=== PATIENT | female | born 2000 | race Two or more races ===

== ENCOUNTER → 2020-08-03 | Outpatient (CLI) | payer OTHER | END | disposition home or self-care (01) | LOC: PRENATAL 10:55 | PROVIDERS: ATTEND Obstetrics & Gynecology Maternal & Fetal Medicine | DX: O34.31 Maternal care for cervical incompetence, first trimester (principal); O36.80X1 Pregnancy with inconclusive fetal viability, fetus 1; O26.851 Spotting complicating pregnancy, first trimester; Z36.89 Encounter for other specified antenatal screening; Z3A.12 12 weeks gestation of pregnancy ==

== ENCOUNTER 2020-08-22 08:26 | Day surgery (SDC) | payer OTHER ==
[~2020-08-22 08:26] MED LIST: PRENATA PO
== END 2020-08-22 18:40 | disposition home or self-care (01) ==
LOC: CIR.AMB 08:26 → SURH 10:11 → CIR.AMB 10:44 → EDSTATUS 10:44 → CIR.AMB 11:14
PROVIDERS: ATTEND Obstetrics & Gynecology Maternal & Fetal Medicine
DX: O34.32 Maternal care for cervical incompetence, second trimester (principal); Z3A.14 14 weeks gestation of pregnancy

== ENCOUNTER → 2020-09-22 | Outpatient (CLI) | payer OTHER | END | disposition home or self-care (01) | LOC: PRENATAL 11:00 | PROVIDERS: ATTEND Obstetrics & Gynecology Maternal & Fetal Medicine | DX: O35.0XX1 Maternal care for (suspected) central nervous system malformation in fetus, fetus 1 (principal); O35.3XX1 Maternal care for (suspected) damage to fetus from viral disease in mother, fetus 1; O98.512 Other viral diseases complicating pregnancy, second trimester; O99.212 Obesity complicating pregnancy, second trimester; Z36.89 Encounter for other specified antenatal screening; Z3A.19 19 weeks gestation of pregnancy ==

== ENCOUNTER 2020-10-11 12:38 | Outpatient (CLI) | payer OTHER | END 2020-10-12 01:06 | disposition home or self-care (01) | LOC: OBS/DEL 12:38 | PROVIDERS: ATTEND Specialist | DX: O26.842 Uterine size-date discrepancy, second trimester (principal); O26.852 Spotting complicating pregnancy, second trimester; O34.32 Maternal care for cervical incompetence, second trimester; O23.42 Unspecified infection of urinary tract in pregnancy, second trimester; Z3A.22 22 weeks gestation of pregnancy ==

== ENCOUNTER → 2020-10-19 | Outpatient (CLI) | payer OTHER | END | disposition home or self-care (01) | LOC: PRENATAL 16:19 | PROVIDERS: ATTEND Obstetrics & Gynecology Maternal & Fetal Medicine | DX: O26.842 Uterine size-date discrepancy, second trimester (principal); O34.32 Maternal care for cervical incompetence, second trimester; O99.212 Obesity complicating pregnancy, second trimester; Z36.89 Encounter for other specified antenatal screening; Z3A.23 23 weeks gestation of pregnancy ==

== ENCOUNTER 2020-11-07 04:28 | Outpatient (CLI) | payer OTHER ==
[~2020-11-07 04:28] MED LIST changes: -PRENATA PO; +PRENATAL PO
[2020-11-07] MEDS ORDERED: MACROBID 100 M100 MG PO (05:39)
[2020-11-07] MEDS ORDERED: PROGESTERONA VAG (05:40)
[2020-11-07] MEDS ORDERED: DUI500 PO (16:37)
== END 2020-11-07 18:20 | disposition home or self-care (01) ==
LOC: OBS/DEL 04:28
PROVIDERS: ATTEND Specialist
DX: O23.42 Unspecified infection of urinary tract in pregnancy, second trimester (principal); Z3A.26 26 weeks gestation of pregnancy; Z20.822 Contact with and (suspected) exposure to COVID-19

== ENCOUNTER → 2020-11-22 | Outpatient (CLI) | payer OTHER ==
[~2020-11-22] MED LIST changes: +DUI500 PO; +FUSION PLUS CA1 EACH; +IRON325 MG PO; +LORATADINE10 MG; +MACROBID 100 M100 MG PO; +PRENATAL CAPLE1 EAC1 PO; +PROGESTERONA VAG; +PROGESTERONE100 M1
== END | disposition home or self-care (01) ==
LOC: PRENATAL 16:00
PROVIDERS: ATTEND Obstetrics & Gynecology Maternal & Fetal Medicine
DX: O26.843 Uterine size-date discrepancy, third trimester (principal); O34.33 Maternal care for cervical incompetence, third trimester; O99.213 Obesity complicating pregnancy, third trimester; Z36.89 Encounter for other specified antenatal screening; Z3A.28 28 weeks gestation of pregnancy

== ENCOUNTER 2021-01-06 13:07 | Inpatient (IN) | payer OTHER ==
[~2021-01-06] VITALS: Ht 160 cm; Wt 117.9 kg
[~2021-01-06 13:07] MED LIST changes: -FUSION PLUS CA1 EACH; -IRON325 MG PO; -LORATADINE10 MG; -PRENATAL CAPLE1 EAC1 PO; -PROGESTERONE100 M1
[2021-01-07] MEDS ORDERED: DUI500 PO (15:22)
== END 2021-01-07 16:45 | disposition home or self-care (01) | DRG 819 ==
LOC: OBS/DEL 13:07 → OB/GYN 17:02 → LDR 17:02 → OB/GYN 18:18
PROVIDERS: ADMIT Specialist; ATTEND Specialist
PROC: 0UCC7ZZ Extirpation of Matter from Cervix, Via Natural or Artificial Opening (ICD-10-PCS; principal; 2021-01-06)
PROC: BY4FZZZ Ultrasonography of Third Trimester, Single Fetus (ICD-10-PCS; 2021-01-06)
DX: O34.33 Maternal care for cervical incompetence, third trimester (principal); O46.8X3 Other antepartum hemorrhage, third trimester; Z3A.34 34 weeks gestation of pregnancy

== ENCOUNTER 2021-01-14 00:20 | Outpatient (CLI) | payer OTHER | END 2021-01-14 07:00 | disposition home or self-care (01) | LOC: NST 00:20 | PROVIDERS: ATTEND Specialist | DX: Z34.83 Encounter for supervision of other normal pregnancy, third trimester (principal) ==

== ENCOUNTER 2021-01-18 14:52 | Inpatient (IN) | payer OTHER ==
[~2021-01-18] VITALS: Ht 160 cm; Wt 117.5 kg
[2021-01-18] MEDS ORDERED: IRON325 MG PO (15:31)
[2021-01-18] MEDS ORDERED: PRENATAL CAPLE1 EAC1 PO (15:31)
[2021-01-19] MEDS ORDERED: FUSION PLUS CA1 EACH (15:16)
[2021-01-19] MEDS ORDERED: LORATADINE10 MG (15:16)
[2021-01-19] MEDS ORDERED: PROGESTERONE100 M1 (15:16)
== END 2021-01-20 18:30 | disposition home or self-care (01) | DRG 807 ==
LOC: OB/GYN 14:52 → LDR 14:52 → OB/GYN 19:23
PROVIDERS: ADMIT Specialist; ATTEND Specialist
PROC: 10E0XZZ Delivery of Products of Conception, External Approach (ICD-10-PCS; principal; 2021-01-18)
PROC: 10907ZC Drainage of Amniotic Fluid, Therapeutic from Products of Conception, Via Natural or Artificial Opening (ICD-10-PCS; 2021-01-18)
PROC: 4A1HXFZ Monitoring of Products of Conception, Cardiac Rhythm, External Approach (ICD-10-PCS; 2021-01-18)
DX: O60.14X0 Preterm labor third trimester with preterm delivery third trimester, not applicable or unspecified (principal); Z37.0 Single live birth; Z3A.36 36 weeks gestation of pregnancy

== ENCOUNTER 2021-07-25 21:40 | Emergency (ER) | payer OTHER ==
[~2021-07-25] VITALS: Ht 160 cm; Wt 107.5 kg
[~2021-07-25 21:40] MED LIST changes: +FUSION PLUS CA1 EACH; +IRON325 MG PO; +LORATADINE10 MG; +PRENATAL CAPLE1 EAC1 PO; +PROGESTERONE100 M1
== END 2021-07-26 03:33 ==
LOC: ER 21:40
DX: O46.91 Antepartum hemorrhage, unspecified, first trimester (principal); Z3A.01 Less than 8 weeks gestation of pregnancy

== ENCOUNTER 2021-09-05 09:57 | Outpatient (CLI) | payer OTHER | END 2021-09-05 11:25 | disposition home or self-care (01) | LOC: PRENATAL 09:57 | PROVIDERS: ATTEND Obstetrics & Gynecology Maternal & Fetal Medicine | DX: O36.80X0 Pregnancy with inconclusive fetal viability, not applicable or unspecified (principal); Z3A.12 12 weeks gestation of pregnancy; O34.30 Maternal care for cervical incompetence, unspecified trimester; O99.210 Obesity complicating pregnancy, unspecified trimester ==

== ENCOUNTER 2021-10-02 08:21 | Inpatient (IN) | payer OTHER ==
[~2021-10-02] VITALS: Ht 160 cm; Wt 110.2 kg
[2021-10-02] MEDS ORDERED: IRON18 MG PO (09:57)
== END 2021-10-03 00:25 | disposition home or self-care (01) | DRG 819 ==
LOC: LDR 08:21
PROVIDERS: ADMIT Obstetrics & Gynecology Maternal & Fetal Medicine; ATTEND Obstetrics & Gynecology Maternal & Fetal Medicine
PROC: 4A1HXCZ Monitoring of Products of Conception, Cardiac Rate, External Approach (ICD-10-PCS; 2021-10-02)
PROC: 0UVC7ZZ Restriction of Cervix, Via Natural or Artificial Opening (ICD-10-PCS; principal; 2021-10-02 18:00)
DX: O34.32 Maternal care for cervical incompetence, second trimester (principal); Z3A.15 15 weeks gestation of pregnancy; Z20.822 Contact with and (suspected) exposure to COVID-19

== ENCOUNTER 2021-10-30 10:57 | Outpatient (CLI) | payer OTHER ==
[~2021-10-30 10:57] MED LIST changes: +IRON18 MG PO
== END 2021-10-30 12:35 | disposition home or self-care (01) ==
LOC: PRENATAL 10:57
PROVIDERS: ATTEND Obstetrics & Gynecology Maternal & Fetal Medicine
DX: O35.1XX1 Maternal care for (suspected) chromosomal abnormality in fetus, fetus 1 (principal); O35.3XX0 Maternal care for (suspected) damage to fetus from viral disease in mother, not applicable or unspecified; Z3A.19 19 weeks gestation of pregnancy; O99.210 Obesity complicating pregnancy, unspecified trimester; O34.30 Maternal care for cervical incompetence, unspecified trimester

== ENCOUNTER 2021-11-15 00:39 | Outpatient (CLI) | payer OTHER | END 2021-11-15 14:00 | disposition home or self-care (01) | LOC: OBS/DEL 00:39 → PRENATAL 01-02 10:30 | PROVIDERS: ATTEND Specialist | DX: O20.9 Hemorrhage in early pregnancy, unspecified (principal); O34.32 Maternal care for cervical incompetence, second trimester; Z3A.22 22 weeks gestation of pregnancy; Z91.040 Latex allergy status ==

== ENCOUNTER 2022-01-02 10:15 | Outpatient (CLI) | payer OTHER | END 2022-01-02 11:41 | disposition home or self-care (01) | LOC: PRENATAL 10:15 | PROVIDERS: ATTEND Obstetrics & Gynecology Maternal & Fetal Medicine | DX: O26.849 Uterine size-date discrepancy, unspecified trimester (principal); O99.210 Obesity complicating pregnancy, unspecified trimester; O09.219 Supervision of pregnancy with history of pre-term labor, unspecified trimester; O34.30 Maternal care for cervical incompetence, unspecified trimester; Z91.040 Latex allergy status; Z3A.29 29 weeks gestation of pregnancy ==

== ENCOUNTER 2022-01-09 13:38 | Inpatient (IN) | payer OTHER ==
[~2022-01-09] VITALS: Ht 152.4 cm; Wt 114.3 kg
[2022-01-17] MEDS ORDERED: FUSION PLUS CA1 EACH (08:48)
[2022-01-22] MEDS ORDERED: FUSION PLUS CA1 EACH PO (10:36)
== END 2022-01-22 15:15 | disposition home or self-care (01) | DRG 768 ==
LOC: OB/GYN 13:38 → LDR 13:38 → OB/GYN 01-12 19:36
PROVIDERS: ADMIT Specialist; ATTEND Specialist
PROC: 4A1HXCZ Monitoring of Products of Conception, Cardiac Rate, External Approach (ICD-10-PCS; 2022-01-09)
PROC: BY4FZZZ Ultrasonography of Third Trimester, Single Fetus (ICD-10-PCS; 2022-01-09)
PROC: 0UCC7ZZ Extirpation of Matter from Cervix, Via Natural or Artificial Opening (ICD-10-PCS; 2022-01-11)
PROC: BY4FZZZ Ultrasonography of Third Trimester, Single Fetus (ICD-10-PCS; 2022-01-17)
PROC: 10E0XZZ Delivery of Products of Conception, External Approach (ICD-10-PCS; principal; 2022-01-20)
DX: O41.03X0 Oligohydramnios, third trimester, not applicable or unspecified (principal); Z37.0 Single live birth; O34.33 Maternal care for cervical incompetence, third trimester; O42.013 Preterm premature rupture of membranes, onset of labor within 24 hours of rupture, third trimester; O24.410 Gestational diabetes mellitus in pregnancy, diet controlled; Z20.822 Contact with and (suspected) exposure to COVID-19; Z3A.31 31 weeks gestation of pregnancy

== ENCOUNTER 2022-12-25 11:59 | Day surgery (SDC) | payer OTHER ==
[~2022-12-25] VITALS: Ht 160 cm; Wt 116.1 kg
[~2022-12-25 11:59] MED LIST changes: +FUSION PLUS CA1 EACH PO
== END 2022-12-25 20:50 | disposition home or self-care (01) ==
LOC: LDR 11:59 → CIR.AMB 11:59 → EDSTATUS 14:15 → CIR.AMB 20:50 → LDR 20:50
PROVIDERS: ATTEND Obstetrics & Gynecology Maternal & Fetal Medicine
DX: O34.32 Maternal care for cervical incompetence, second trimester (principal); Z3A.14 14 weeks gestation of pregnancy; Z91.040 Latex allergy status; Z20.822 Contact with and (suspected) exposure to COVID-19

== ENCOUNTER 2023-04-09 15:43 | Outpatient (CLI) | payer OTHER | END 2023-04-09 16:05 | disposition home or self-care (01) | LOC: PRENATAL 15:43 | PROVIDERS: ATTEND Obstetrics & Gynecology Maternal & Fetal Medicine | DX: O26.849 Uterine size-date discrepancy, unspecified trimester (principal); O34.30 Maternal care for cervical incompetence, unspecified trimester; O99.210 Obesity complicating pregnancy, unspecified trimester; Z3A.29 29 weeks gestation of pregnancy ==

== ENCOUNTER 2023-04-30 19:49 | Outpatient (CLI) | payer OTHER ==
[~2023-04-30] VITALS: Ht 160 cm; Wt 115.7 kg
[2023-04-30] MEDS ORDERED: PRENATAL TABLE1 EAC4 PO (20:24)
[2023-04-30 20:45] LABS: HEMATOCRIT 31.9 % (36.0-45.00); HEMOGLOBIN 10.7 g/dL (12.0-15.00); MEAN CELL VOLUME 81.3 fL (80.00-100.00); MEAN CORPUSCULAR HEMOGLOBIN 27.4 pg (27.00-32.0); MEAN CORPUSCULAR HGB CONC 33.7 g/dl (32.0-36.0); PH,URINE 6.5 (5.0-8.0); PLATELET COUNT 241 K/uL (150-450); RED BLOOD COUNT 3.92 M/uL (4.00-6.00); RED CELL DISTRIBUTION WIDTH 13.5 % (11.5-14.5); URINE APPEARANCE Clear; URINE BILIRRUBIN Negative (NEGATIVE); URINE BLOOD Moderate; URINE COLOR Yellow; URINE GLUCOSE Negative (NEGATIVE); URINE LEUKOCYTE Moderate; URINE NITRATE Negative; URINE PROTEIN Negative (NEGATIVE)
[2023-04-30 20:48] LABS: URINE EPITHELIAL CELLS 53.3 uL (0.0-38.8); URINE WBC 315.2 uL (0.0-23.2)
[2023-04-30 21:12] LABS: INR 0.95; PARTIAL THROMBOPLASTIN TIME 27.4 SECONDS (22.0-34.0)
[2023-04-30 21:26] LABS: ALBUMIN 2.4 gm/dL (3.4-5.0); BILIRUBIN TOTAL 0.16 mg/dL (0.3-1.2); CALCIUM 8.5 mg/dL (8.5-10.1); CREATININE SERUM 0.58 mg/dL (0.55-1.02); GFR 128.83; GLOBULINA 3.6 G/DL (2.4-3.5); POTASSIUM 4.14 mEq/L (3.5-5.1)
== END 2023-05-01 18:30 | disposition home or self-care (01) ==
LOC: OBS/DEL 19:49
PROVIDERS: Orthopaedic Surgery Foot and Ankle Surgery; ATTEND Specialist
DX: O09.33 Supervision of pregnancy with insufficient antenatal care, third trimester (principal); O23.33 Infections of other parts of urinary tract in pregnancy, third trimester; N39.0 Urinary tract infection, site not specified; Z3A.32 32 weeks gestation of pregnancy

== ENCOUNTER 2023-05-02 13:14 | Outpatient (CLI) | payer OTHER ==
[~2023-05-02] VITALS: Ht 160 cm; Wt 116.1 kg
[~2023-05-02 13:14] MED LIST changes: +PRENATAL TABLE1 EAC4 PO
[2023-05-02 15:10] LABS: PH,URINE 6.5 (5.0-8.0); URINE APPEARANCE Cloudy; URINE BILIRRUBIN Negative (NEGATIVE); URINE BLOOD Large; URINE COLOR Dark Yellow; URINE GLUCOSE Negative (NEGATIVE); URINE LEUKOCYTE Small; URINE NITRATE Negative; URINE PROTEIN 30 (NEGATIVE)
[2023-05-02 15:11] LABS: URINE BACTERIA 1169.1 uL (0.0-1933); URINE EPITHELIAL CELLS 135.4 uL (0.0-38.8); URINE RBC 411.7 uL (0.0-20.8); URINE WBC 30.7 uL (0.0-23.2)
[2023-05-02 15:20] LABS: HEMATOCRIT 32.4 % (36.0-45.00); HEMOGLOBIN 11.2 g/dL (12.0-15.00); MEAN CELL VOLUME 81.3 fL (80.00-100.00); MEAN CORPUSCULAR HEMOGLOBIN 28.1 pg (27.00-32.0); MEAN CORPUSCULAR HGB CONC 34.5 g/dl (32.0-36.0); PLATELET COUNT 204 K/uL (150-450); RED BLOOD COUNT 3.99 M/uL (4.00-6.00); RED CELL DISTRIBUTION WIDTH 13.7 % (11.5-14.5)
[2023-05-02 15:33] LABS: ALBUMIN 2.4 gm/dL (3.4-5.0); BILIRUBIN TOTAL 0.35 mg/dL (0.3-1.2); CALCIUM 8.1 mg/dL (8.5-10.1); CREATININE SERUM 0.54 mg/dL (0.55-1.02); GFR 139.9; GLOBULINA 3.7 G/DL (2.4-3.5); POTASSIUM 3.8 mEq/L (3.5-5.1); TOTAL PROTEIN 6.1 gm/dL (6.4-8.2)
== END 2023-05-03 13:34 | disposition home or self-care (01) ==
LOC: OBS/DEL 13:14
PROVIDERS: ATTEND Specialist
DX: O26.893 Other specified pregnancy related conditions, third trimester (principal); O34.33 Maternal care for cervical incompetence, third trimester; K52.89 Other specified noninfective gastroenteritis and colitis; Z3A.32 32 weeks gestation of pregnancy; Z91.040 Latex allergy status

== ENCOUNTER 2023-05-20 00:55 | Inpatient (IN) | payer OTHER ==
[~2023-05-20] VITALS: Ht 160 cm; Wt 117.0 kg
[2023-05-20 01:35] LABS: HEMATOCRIT 31.8 % (36.0-45.00); HEMOGLOBIN 10.7 g/dL (12.0-15.00); MEAN CELL VOLUME 81.3 fL (80.00-100.00); MEAN CORPUSCULAR HEMOGLOBIN 27.4 pg (27.00-32.0); MEAN CORPUSCULAR HGB CONC 33.7 g/dl (32.0-36.0); PLATELET COUNT 209 K/uL (150-450); RED BLOOD COUNT 3.91 M/uL (4.00-6.00); RED CELL DISTRIBUTION WIDTH 14.6 % (11.5-14.5)
[2023-05-20 01:36] LABS: PH,URINE 6.5 (5.0-8.0); URINE APPEARANCE Clear; URINE BILIRRUBIN Negative (NEGATIVE); URINE BLOOD Moderate; URINE COLOR Yellow; URINE GLUCOSE Negative (NEGATIVE); URINE LEUKOCYTE Small; URINE NITRATE Negative; URINE PROTEIN Negative (NEGATIVE)
[2023-05-20 01:40] LABS: URINE BACTERIA 1363.2 uL (0.0-1933); URINE EPITHELIAL CELLS 31.5 uL (0.0-38.8); URINE RBC 226.2 uL (0.0-20.8); URINE WBC 113.2 uL (0.0-23.2)
== END 2023-05-21 08:19 | disposition home or self-care (01) | DRG 831 ==
LOC: OBS/DEL 00:55 → LDR 12:17 → OBS/DEL 12:17 → LDR 05-21 08:19
PROVIDERS: Obstetrics & Gynecology; ADMIT Specialist; ATTEND Specialist
PROC: BY4FZZZ Ultrasonography of Third Trimester, Single Fetus (ICD-10-PCS; principal; 2023-05-20)
PROC: BU4CZZZ Ultrasonography of Uterus and Ovaries (ICD-10-PCS; 2023-05-20)
PROC: 4A1HXCZ Monitoring of Products of Conception, Cardiac Rate, External Approach (ICD-10-PCS; 2023-05-20)
DX: O23.43 Unspecified infection of urinary tract in pregnancy, third trimester (principal); O34.33 Maternal care for cervical incompetence, third trimester; O60.03 Preterm labor without delivery, third trimester; Z3A.35 35 weeks gestation of pregnancy; Z20.822 Contact with and (suspected) exposure to COVID-19; O36.8130 Decreased fetal movements, third trimester, not applicable or unspecified; O26.843 Uterine size-date discrepancy, third trimester

== ENCOUNTER 2023-05-27 07:56 | Inpatient (IN) | payer OTHER ==
[~2023-05-27] VITALS: Ht 160 cm; Wt 117.0 kg
[2023-05-27 08:41] LABS: HEMATOCRIT 33.2 % (36.0-45.00); HEMOGLOBIN 11.2 g/dL (12.0-15.00); MEAN CELL VOLUME 82.4 fL (80.00-100.00); MEAN CORPUSCULAR HEMOGLOBIN 27.8 pg (27.00-32.0); MEAN CORPUSCULAR HGB CONC 33.7 g/dl (32.0-36.0); PLATELET COUNT 203 K/uL (150-450); RED BLOOD COUNT 4.03 M/uL (4.00-6.00); RED CELL DISTRIBUTION WIDTH 15.2 % (11.5-14.5)
[2023-05-27 08:51] LABS: PH,URINE 6.5 (5.0-8.0); URINE APPEARANCE Cloudy; URINE BILIRRUBIN Negative (NEGATIVE); URINE BLOOD Large; URINE COLOR Yellow; URINE GLUCOSE Negative (NEGATIVE); URINE LEUKOCYTE Small; URINE NITRATE Negative; URINE PROTEIN Trace (NEGATIVE)
[2023-05-27 08:53] LABS: URINE EPITHELIAL CELLS 44.4 uL (0.0-38.8); URINE RBC 1020.9 uL (0.0-20.8); URINE WBC 42.9 uL (0.0-23.2)
[2023-05-27 18:14] LABS: ABG pCO2 34.2 mmHg (35-45)
[2023-05-27 18:15] LABS: BASE EXCESS -2.6 mmol/l; BICARBONATE 21.2 mmol/l (23-25); SaO2 67.3 %; Tco2 22.2 mmol/l; o2 21 %
== END 2023-05-29 16:40 | disposition home or self-care (01) | DRG 768 ==
LOC: OBS/DEL 07:56 → OB/GYN 11:17 → LDR 11:17 → OB/GYN 15:23
PROVIDERS: ADMIT Specialist; ATTEND Specialist
PROC: 10E0XZZ Delivery of Products of Conception, External Approach (ICD-10-PCS; principal; 2023-05-27)
PROC: 0UCC7ZZ Extirpation of Matter from Cervix, Via Natural or Artificial Opening (ICD-10-PCS; 2023-05-27)
PROC: 4A1HXCZ Monitoring of Products of Conception, Cardiac Rate, External Approach (ICD-10-PCS; 2023-05-27)
DX: O60.14X0 Preterm labor third trimester with preterm delivery third trimester, not applicable or unspecified (principal); Z37.0 Single live birth; Z3A.36 36 weeks gestation of pregnancy; Z20.822 Contact with and (suspected) exposure to COVID-19